=== PATIENT | female | born 1995 | race Caucasian/White ===

== ENCOUNTER 2024-07-31 07:41 | Emergency (ER) | payer BC ==
[~2024-07-31] VITALS: Ht 162.6 cm; Wt 79.4 kg
[2024-07-31 07:55] VITALS: BP 101/72; TEMP 101.2; O2SAT 100
[2024-07-31] MEDS ORDERED: AMOX-430 PO (08:03)
[2024-07-31] MEDS ORDERED: IBUP-1955 PO (08:04)
== END 2024-07-31 08:04 | disposition home or self-care (01) ==
LOC: ER 07:54
DX: J02.9 Acute pharyngitis, unspecified (principal)